=== PATIENT | male | born 1990 | race African-American/Black ===

== ENCOUNTER 2018-09-06 01:00 | Emergency (ER) | payer OTHER ==
[2018-09-06 02:35] VITALS: BP 127/90; PULSE 84; TEMP 98.5; BMI 39.2
--- NOTE | 2018-09-06 02:44 | PDOC ---
History of Present Illness - General Chief Complaint: Cold Symptoms Stated Complaint: FEVER Time Seen by Provider: 09/06/18 02:20 - History of Present Illness Initial Comments: 09/06/18 02:39 27 yo M with no significant pmh who p/w cough, fever. Patient reports 3 days of stable non productive cough, with absent hemoptysis. Also endorses 3 days of fevers, with Tmax 100.8. Endorses abdominal pain, diffusely, aggravated with coughing. Patient reports being seen at urgent care 09-05-18, with neg rapid strep, pending flu test. Symptom management with Ibuprofen, and anti-tussive medication. No recent travels. No other complaints. Patient denies Palpitations, wheezing, leg pain/swelling, N/V, F,C, CP, SOB, urinary complaints, abdominal pain, diarrhea, constipation, lightheadedness, weakness, sensory changes. PMHx: as noted above ROS: as noted SHx: Tobacco use 1 ppd for 10 years. Denies IVDA Allergies: NKDA Past History - Past Medical History Allergies/Adverse Reactions: Allergies Allergy/AdvReac Type Severity Reaction Status Date / Time clindamycin HCl Allergy Verified 03/08/16 03:18 [From Cleocin] clindamycin palmitate HCl Allergy Verified 03/08/16 03:18 [From Cleocin] clindamycin phosphate Allergy Verified 03/08/16 03:18 [From Cleocin] shellfish derived Allergy Swelling Verified 03/07/16 22:58 Home Medications: Ambulatory Orders Ciprofloxacin [Cipro -] 500 mg PO Q12H #20 tablet 03/08/16 Naproxen Sodium [Aleve] 220 mg PO BID PRN #30 tablet 03/08/16 COPD: No - Immunization History Immunization Up to Date: Yes - Suicide/Smoking/Psychosocial Hx Smoking History: Current every day smoker Have you smoked in the past 12 months: Yes Number of Cigarettes Smoked Daily: 20 Information on smoking cessation initiated: No Hx Alcohol Use: No Drug/Substance Use Hx: No Substance Use Type: None Review of Systems - Review of Systems Comments:: 09/06/18 02:57 GENERAL/CONSTITUTIONAL:+ fever. No chills. No weakness. HEAD, EYES, EARS, NOSE AND THROAT: No change in vision. No ear pain or discharge. No sore throat. CARDIOVASCULAR: No chest pain or shortness of breath RESPIRATORY:+cough. No wheezing, or hemoptysis. GASTROINTESTINAL: No nausea, vomiting, diarrhea or constipation. GENITOURINARY: No dysuria, frequency, or change in urination. MUSCULOSKELETAL: No joint or muscle swelling or pain. No neck or back pain. SKIN: No rash NEUROLOGIC: No headache, vertigo, loss of consciousness, or change in strength/ sensation. ENDOCRINE: No increased thirst. No abnormal weight change HEMATOLOGIC/LYMPHATIC: No anemia, easy bleeding, or history of blood clots. ALLERGIC/IMMUNOLOGIC: No hives or skin allergy. *Physical Exam - Vital Signs Last Vital Signs Temp Pulse Resp BP Pulse Ox 98.5 F 84 17 127/90 96 09/06/18 01:10 09/06/18 01:10 09/06/18 01:10 09/06/18 01:10 09/06/18 01:10 - Physical Exam Comments: 09/06/18 02:58 GENERAL: Awake, alert, and fully oriented, in no acute distress HEAD: No signs of trauma, normocephalic, atraumatic EYES: PERRLA, EOMI, sclera anicteric, conjunctiva clear ENT: Auricles normal inspection, hearing grossly normal, nares patent, oropharynx clear without exudates. Moist mucosa NECK: Normal ROM, supple, no lymphadenopathy, JVD, or masses LUNGS: No distress, speaks full sentences, clear to auscultation bilaterally HEART: Regular rate and rhythm, normal S1 and S2, no murmurs, rubs or gallops, peripheral pulses normal and equal bilaterally. ABDOMEN: Soft, nontender, normoactive bowel sounds. No guarding, no rebound. No masses EXTREMITIES : Normal inspection, Normal range of motion, no edema. No clubbing or cyanosis. SKIN: Warm, Dry, normal turgor, no rashes or lesions noted Moderate Sedation - Procedure Monitoring Vital Signs: Procedure Monitoring Vital Signs Temperature 98.5 F 09/06/18 01:10 Pulse Rate 84 09/06/18 01:10 Respiratory Rate 17 09/06/18 01:10 Blood Pressure 127/90 09/06/18 01:10 O2 Sat by Pulse Oximetry (%) 96 09/06/18 01:10 Medical Decision Making - Medical Decision Making 09/06/18 02:44 27 yo M with no significant pmh who p/w cough, fever Tmax 100.8. Vitals wnl, AF , A&Ox3. Physical exam unremarkable. Denies Palpitations, wheezing, leg pain/ swelling, N/V, F,C, CP, SOB, urinary complaints, abdominal pain, diarrhea, constipation, lightheadedness, weakness, sensory changes. Low suspicion PNA, pleural effusion, pericardial effusion. Likely viral URI. ED Course: Flu : Neg CXR: Unremarkable Stable for d/c with return precautions *DC/Admit/Observation/Transfer Diagnosis at time of Disposition: Cough - Referrals Referrals: Jarrett Stapleton [Primary Care Provider] - - Patient Instructions Printed Discharge Instructions: DI for Viral Upper Respiratory Infection -- Adult Additional Instructions: Please return to the emergency department with any new or worsening symptoms or concerns. Please follow up with your primary care physician within 72 hours. Please take Ibuprofen 600 mg every 6-8 hours as needed. - Post Discharge Activity - Attestations Physician Attestion: 09/06/18 02:59 I attest to the information provided in this note.
--- NOTE | 2018-09-06 02:48 | PDOC ---
Attending Attestation - Resident Resident Name: Emmanuel Oakes - ED Attending Attestation I have performed the following: I have examined & evaluated the patient, The case was reviewed & discussed with the resident, I agree w/resident's findings & plan - HPI HPI: 09/06/18 02:47 Pt comes with fever and cough. Ongoing. He thinks he may have gotten his daughter sick. No PMHx. - Physicial Exam PE: 09/06/18 02:47 Agree with resident exam - Medical Decision Making 09/06/18 02:47 Flu culture sent 09/06/18 03:12 Flu negative. Pt has a viral illness. Pt has a normal exam 09/06/18 03:14 Pt states that he is coughing. We will get a CXR. He is a smoker x 10 yrs. 09/06/18 03:27 chest XR is normal 09/06/18 03:29 diagnosis: viral syndrome
== END 2018-09-06 04:11 | disposition home or self-care (01) ==
LOC: JER 01:00
DX: B34.9 Viral infection, unspecified (principal); F17.210 Nicotine dependence, cigarettes, uncomplicated
CPT/HCPCS: 71046-TC-FY; 87804; 99281-25

== ENCOUNTER 2023-08-09 15:59 | Emergency (ER) | payer OTHER ==
[2023-08-09 16:25] VITALS: BP 140/88; PULSE 78; RESP 18; TEMP 97.9; BMI 40.5
[2023-08-09] MEDS ORDERED: AMOX TR/POT CLAV 875MG/125MG TABLETS (FP) PO ONE (17:50)
[2023-08-09] MEDS ORDERED: AMOX TR/POT CLAV 875MG/125MG TABLETS (FP) ONE (17:59)
== END 2023-08-09 18:11 | disposition home or self-care (01) ==
LOC: JER 15:59 → JERFT 15:59
DX: K04.7 Periapical abscess without sinus (principal); K08.89 Other specified disorders of teeth and supporting structures; R22.0 Localized swelling, mass and lump, head; S02.5XXD Fracture of tooth (traumatic), subsequent encounter for fracture with routine healing
CPT/HCPCS: 99283-25

== ENCOUNTER 2024-03-16 03:13 | Emergency (ER) | payer OTHER ==
[2024-03-16 03:27] VITALS: BP 131/98; PULSE 88; RESP 18; TEMP 98.2; BMI 40.8
[2024-03-16] MEDS ORDERED: KETOROLAC TROMETHAMINE 30 MG/1 ML VIAL ONE (04:45)
[2024-03-16] MEDS: KETOROLAC TROMETHAMINE 30 MG/1 ML VIAL IM ONE (04:57)
== END 2024-03-16 05:48 | disposition home or self-care (01) ==
LOC: JER 03:13
PROC: 3E0233Z Introduction of Anti-inflammatory into Muscle, Percutaneous Approach (ICD-10-PCS; principal; 2024-03-16)
DX: M25.512 Pain in left shoulder (principal)
CPT/HCPCS: 93005; 93010; 99284-25